=== PATIENT | male | born 1965 | race Caucasian/White ===

== ENCOUNTER 2016-06-08 23:48 | Inpatient (IN) | payer OTHER ==
[~2016-06-08] VITALS: Ht 175.3 cm; Wt 86.6 kg
[~2016-06-08 23:48] MED LIST: CHOL400D9 PO; COD1CAPS16 PO
[2016-06-09] VITALS (14 sets, daily range): BP systolic 102–174; BP diastolic 65–103; PULSE 63–104; RESP 10–21; O2SAT 94–100
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
[2016-06-09] MEDS ORDERED: Ondansetron 2 mg/mL 2 mL Inj ONE (00:14)
[2016-06-09 00:29] LABS: Mean Corpuscular Hemoglobin 32.8 pg (27.0-35.0); Mean Corpuscular Volume 86.3 fL (81-100); Platelet Count 250 bil/L (150-400)
[2016-06-09 00:40] LABS: BASOPHILS % (AUTO) 0.9 % (0-3); EOSINOPHILS % (AUTO) 1.9 % (0-5); MONOCYTES % (AUTO) 8.8 % (4-12); NEUTROPHILS % (AUTO) 36.4 % (40-74)
[2016-06-09 00:44] LABS: TROPONIN T 0.01 ug/L (0.0-0.011)
[2016-06-09] MEDS ORDERED: Alum-Mag Hydrox-Simeth 30 mL Suspension PO ONE (00:55)
[2016-06-09] MEDS ORDERED: Nitroglycerin 50 mg/250 mL D5W 50,000 MCG in IV Premix 1 EACH IV ONE (03:19)
[2016-06-09] MEDS ORDERED: Heparin 5,000 Unit/mL Inj IVPUSH ONE (03:20)
[2016-06-09] MEDS ORDERED: MeTOProlol 1 mg/mL 5 mL Inj IVPUSH PRN (03:20)
[2016-06-09] MEDS ORDERED: Heparin 25K Unit/500mL 0.45 NS 25,000 UNIT in IV Premix 1 EACH IV ONE (03:40)
[2016-06-09] MEDS ORDERED: Ondansetron 2 mg/mL 2 mL Inj IVPUSH PRN ×2 (04:00→04:30)
[2016-06-09] MEDS ORDERED: Atropine 1 mg/10 mL (Code) Syringe IVPUSH PRN (04:30)
[2016-06-09] MEDS ORDERED: Heparin 5,000 Unit/mL Inj IVPUSH PRN (04:35)
[2016-06-09] MEDS ORDERED: Heparin 25K Unit/500mL 0.45 NS 25,000 UNIT in IV Premix 1 EACH IV SCH (04:35)
[2016-06-09] MEDS: Nitroglycerin 50 mg/250 mL D5W 50,000 MCG in IV Premix 1 EACH IV SCH (04:35)
--- NOTE | 2016-06-09 05:00 | NUR ---
Pt Admission to [facility] Pt arrived to room 2000 approximately 0500 on a gurney from the ED with a Nitro drip going at 30mcg/min. Pt is AOx3, RIGGINS, and is accompanied by . Pt was hooked up to an MP30 with Q10Min vital signs. Pt's VSS and pt had 0/10 chest pain with no N/V/D. Pt is able to independently ambulate in room with a steady gait and is NPO in preparation for the engineering lab technician. Addendum: 06/09/16 at 0753 by FLORENTIN PAINTER RN Pt was given booklets pertaining to cardiac catheterization, angioplasty, and stenting.
[2016-06-09] MEDS: 0.9% Sodium Chloride 1,000 ML IV SCH ×2 (06:19→18:39)
--- NOTE | 2016-06-09 06:28 | PCM.HPMED ---
Subjective Date of Service Jun 09, 2016 Primary Provider: Admitting Physician: Khalif Matt MD Primary Care Physician: Altagracia Rucker MD Attending Physician: Khalif Matt MD Chief Complaint: Chest pain/heaviness with associated nausea and sweating History of Present Illness: PCP is Dr. Altagracia Rucker Huey is a pleasant 50-year-old gentleman with history of diabetes mellitus type II on oral medications and hyperlipidemia not currently on medication ( history of intolerance of statin) who presents with an approximately 36 hour complaint of waxing and waning chest pain/heaviness (anywhere from 1-07/24). This is associated with nausea and episodes of feeling hot and sweaty. He also notes that he has had at least 2 very brief episodes of shock sensation in the left arm. He also reports a headache during this time. Patient otherwise denies any other concerning symptoms. He does report that he had a URI back in March and April of this year. He reports receiving from his primary care provider courses of prednisone, inhalers, and cough suppressant. He currently reports that he has an ongoing dry cough but denies production. Denies fever/chills. Initially the EKG in the ER demonstrated what looked like ST elevation, but upon review with both diagnostic and interventional cardiology (with the ER physician) in the setting of repeat EKG, this was determined to not be the case. However, his second troponin was increased at 0.061, and decision was made at that time to initiate management of NSTEMI. It was noted during blood draw to check his PTT that his blood was quite "fatty." For this reason he was switched from heparin drip to therapeutic Lovenox. His chest heaviness was somewhat persistent on nitro drip, but improved. Patient is admitted under inpatient status with expected length of stay greater than 2 midnights due to severity of presenting symptoms, risk of adverse event, and complexity of treatment plan. Review of Systems: Comprehensive review of systems conducted and was negative except for the pertinent positives listed in history of present illness above. Allergies Coded Allergies: lovastatin (Verified Allergy, Intermediate, 05/19/15) Uncoded Allergies: statin drugs (Allergy, Intermediate, 06/14/10) Home Medications Med rec not yet completed: Patient reports taking the following: Metformin Fish oil Vitamin D And multiple vitamins (list was provided to the nurse in the ER, but upon searching through the chart I am not able to find a copy) We will need to address his exact doses and exactly what he is taking. PMH Diabetes mellitus type II not on insulin Patient reports fatty liver Hyperlipidemia (reports intolerance of statins-myalgias) Meniscus repair of the right knee Hemorrhoid surgery Father of leukemia at age 39 (this was reportedly secondary to agent orange exposure) Mother was quite ill with breast cancer (and possibly other cancers/metastatic disease), heart disease, stroke, diabetes Maternal grandfather had heart failure Social History Hx Alcohol Use: Yes (very rarely) Hx Substance Use: No Hx Tobacco Use: No Smoking Status: Never Smoker Living Arrangement: with Family Additional Information with children. Born in [place], and his lived in [place], [place], and now [place]. 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 However, patient is never served in the . 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 Exam Vital Signs Vital Sign - Last Date Time Temp Pulse Resp B/P Pulse Ox O2 Delivery O2 Flow Rate FiO2 06/09/16 05:52 77 06/09/16 05:06 37.5 21 118/69 95 Room Air Exam General: Good hygiene. Well-nourished. Alert, Oriented X3, Cooperative, mild to moderate Distress Head: Normocephalic, atraumatic. External ears normal. Eyes: PERRLA, EOMI. Anicteric sclerae. Conjunctivae are not injected Mouth: Mouth Normal, Mucous Membranes Moist/Tyrone Neck: Neck supple with full range of motion. No Thyromegaly. Chest & Lungs: Clear to auscultation bilaterally with no crackles, wheezes, or rhonchi. Cardiovascular: Regular Rate/Rhythm, Normal S1, Normal S2, No Murmurs/Rubs/ Gallops radial pulses are 2+ bilaterally as are the posterior tibials. No carotid bruits appreciated. Abdomen: Non-tender, Non-distended, No masses, Normoactive bowel tones, Soft Musculoskeletal: Normal Range of Motion Extremities: Mild pitting edema in the bilateral lower extremities below the knees. No cyanosis/clubbing bilat Neurological: Grossly Neurologically Intact, Cranial Nerves 2-12 Intact, Normal Speech Psych: Normal mood and affect. Thought process and content intact. Lab and Diagnostics Labs Laboratory Tests 72 Hours Test 06/08/16 23:59 06/09/16 02:20 06/09/16 04:29 White Blood Count 7.9th/mm3 (3.8-10.1) Red Blood Count 4.82mil/mm3 (4.40-5.80) Hemoglobin 15.8g/dL (13.8-17.2) Hematocrit 41.6% (41.0-50.0) Mean Corpuscular Volume 86.3fL (81-100) Mean Corpuscular Hemoglobin 32.8pg (27.0-35.0) Mean Corpuscular Hemoglobin Concent 38.0% (32.0-37.0) Red Cell Distribution Width 13.4% (12.3-15.4) Platelet Count 250bil/L (150-400) Neutrophils (%) (Auto) 36.4% (40-74) Lymphocytes (%) (Auto) 51.6% (14-46) Monocytes (%) (Auto) 8.8% (4-12) Eosinophils (%) (Auto) 1.9% (0-5) Basophils (%) (Auto) 0.9% (0-3) D-Dimer < 0.5mg/L (<0.50) Sodium Level 136mEq/L (134-144) Potassium Level 4.9mEq/L (3.5-5.2) Chloride Level 95mEq/L (97-108) Carbon Dioxide Level 22mmol/L (18-29) Blood Urea Nitrogen 17mg/dL (6-24) Creatinine 0.48mg/dL (0.76-1.27) Estimat Glomerular Filtration Rate 195mL/min (>59) Glucose Level 275mg/dL (60-99) Calcium Level 9.3mg/dL (8.5-10.1) Magnesium Level 2.0mg/dL (1.6-2.6) Total Bilirubin 0.4mg/dL (0.0-1.2) Aspartate Amino Transf (AST/SGOT) 61U/L (0-50) Alanine Aminotransferase (ALT/SGPT) 57U/L (0-44) Alkaline Phosphatase 47U/L (25-150) Troponin T 0.010ug/L (0.0-0.011) 0.061ug/L (0.0-0.011) Total Protein 8.0g/dL (6.4-8.4) Albumin 4.1g/dL (3.4-5.0) Hold Stuart Top Tube Received (Received) Triglycerides Level 2331mg/dL (0-149) Cholesterol Level 274mg/dL (100-199) LDL Cholesterol, Calculated mg/dL (0-99) VLDL Cholesterol 466.200mg/dL HDL Cholesterol 20mg/dL (>39) Cholesterol/HDL Ratio 13.70 (0.0-4.4) Hold Urine Received (Received) Result Diagram: 06/08/16 2359 06/08/16 2359 Microbiology None this visit X-Rays, CTs and MRIs Chest x-ray on personal read does not demonstrate any acute abnormality. 12-lead ECG Initial EKG when patient presented showed sinus rhythm with a rate of 60 and relatively normal intervals. There was however ST elevation in V2, V3, and borderline before. However, despite nonspecific ST-T changes in 1 and 2 these do not appear to be contributory. On repeat EKG in our to later: Sinus rhythm with rate of 68 and normal intervals , but the ST-T wave changes that were so obvious on the previous EKG had resolved. Cardiac Echo Impressions None yet this visit Assessment & Plan Huey is a pleasant 50-year-old gentleman with history of diabetes mellitus type II on oral medications and hyperlipidemia not currently on medication ( history of intolerance of statin) who presents with an approximately 36 hour complaint of waxing and waning chest pain/heaviness (anywhere from 1-5/10) with associated nausea, sweating, headache. 1. NSTEMI as indicated by normalization of ECG with elevated troponin. Acute. Present on admission -Possible alternative etiology would be pancreatitis given his significant hypertriglyceridemia (lipase is pending) -Medical management with therapeutic Lovenox and nitroglycerin drip -This is just having is somewhat persisted on nitro drip, we will get cardiology more directly involved for possible cath today (defer to their judgment) -Continue to monitor labs, vital signs, clinical progression closely -We will trend troponins -We will likely need to add additional medications to his regimen (such as beta abiel, Carlos, aspirin) -Cardiology consulted 2. Severe hypertriglyceridemia with triglycerides greater than 2000, unclear etiology and chronicity but presumed to be acute. Present on admission -This puts him at significant risk for pancreatitis and cardiac complications -Given his degree of triglyceridemia, pharmacologic therapy is indicated with a fibrate, or potentially trying with the statin again. -Given his low HDL and markedly elevated total cholesterol and VLDL, there is certainly the possibility of the inherited mixed hyperlipidemia in this gentleman. -May be related to his diabetes (given his significantly elevated blood glucose of 275), and I am checking an A1c -Added TSH and free T4 -Added UA to assess for proteinuria -Continue to monitor labs, vital signs, clinical progression closely 3. Hyperglycemia in patient with type II diabetes, not on insulin. Present on admission -Suspect poor control -A1c as above, with subsequent determination for intervention/management -In the meantime, will add medium dose correction insulin -Continue to follow closely and consider for basal insulin 4. Mild transaminitis, unknown chronicity but presumed to be acute. Present on admission -Potentially related to fatty liver, hypertriglyceridemia, or ACS -Management as above -Continue to monitor labs closely 5. Relative lymphocytosis with normal white blood cell count, unclear etiology and chronicity. Present on admission -Management of acute presenting conditions as noted above -Continue to follow closely Chronic conditions: Patient reports fatty liver-as noted above, we will add on abdominal ultrasound Patient is admitted under inpatient status with expected length of stay greater than 2 midnights due to severity of presenting symptoms, risk of adverse event, and complexity of treatment plan. Pain Evaluation: Adequate Pain Control GI Prophylaxis: Not indicated VTE Prophylaxis: Other (therapeutic Lovenox) Resuscitation Status: CPR: Attempt Resuscitation Attending Statement The patient was seen and examined together with Dr. Cordoba on 06/09 and I agree with the history, exam and plan as outlined in the note above. copies to: Altagracia Rucker MD, Collin T DO Jun 09, 2016 06:28 Khalif Matt MD Jun 09, 2016 19:14
--- NOTE | 2016-06-09 07:29 | DRSVH ---
PROCEDURE: X-RAY CHEST ONE VIEW, PORTABLE ([id number]) INDICATIONS: CP TECHNIQUE: One view of the chest was acquired. COMPARISON: [facility], CR, CHEST 1VW, 11/26/2008, 20:17. [facility], CR, CH EST 1VW (PORTABLE), 11/26/2008, 19:09. [facility], CR, CHEST 1VW, 08/18/2013, 10:55. FINDINGS: Surgical changes and devices: None. Lungs and pleura: No pleural effusions or pneumothorax. Lungs are clear. Mediastinum: Mediastinal contours appear normal. Heart size is normal. Bones and chest wall: No suspicious bony lesions. Overlying soft tissues appear unremarkable. IMPRESSION: No acute process. Dictated by: Gerry Amaya M.D. on 06/09/2016 at 7:27 Approved by: Gerry Amaya M.D. on 06/09/2016 at 7:28
[2016-06-09] MEDS: Sodium Chloride LOK Flush 10 mL Syringe IVFLUSH SCH ×2 (07:45→16:30)
[2016-06-09] MEDS: Insulin Human REGular 300 Unit/3 mL Inj SUBQ SCH ×3 (07:45→20:39)
[2016-06-09 08:14] LABS: APPEARANCE,URINE CLEAR (CLEAR,HAZY); COLOR,URINE STRAW (YELLOW); OCCULT BLOOD,URINE NEGATIVE (NEGATIVE); PH,URINE 6.5 (5.0-8.0); UROBILINOGEN,URINE NORMAL (NORMAL)
[2016-06-09 08:26] LABS: BASOPHILS % (AUTO) 0.4 % (0-3); EOSINOPHILS % (AUTO) 1.7 % (0-5); MONOCYTES % (AUTO) 6.3 % (4-12); Mean Corpuscular Hemoglobin 31.3 pg (27.0-35.0); Mean Corpuscular Volume 87.1 fL (81-100); NEUTROPHILS % (AUTO) 49.4 % (40-74); Platelet Count 189 bil/L (150-400)
[2016-06-09] MEDS ORDERED: METF500T4 PO (08:44)
--- NOTE | 2016-06-09 11:02 | NUR ---
Social Work Note: Screen Note Data& Assessment: EMR reviewed. SW met with pt and pt at bedside to check in and assess for any unmet needs, SW role explained. SW phone number provided on pt whiteboard. Huey Leonard is a 50 year old male admitted on 06/09/2016 for NONSTEMI. Pt has [facility] insurance coverage and sees Altagracia Rucker MD for primary care. Pt lives in [place] with his in a three story home and is independent at baseline. Pt was provided with DPOA/Advance Directive paperwork to review and complete when possible. Pt to transport pt home when medically ready. Pt and pt deny any other needs at this time. SW to continue to follow if any needs arise. Plan: Anticipated discharge home via POV when medically ready. Pt and pt deny any other needs at this time. SW to continue to follow if any needs arise. MIGUEL Cabrera
[2016-06-09 12:53] LABS: Creatine Kinase 134 U/L (21-232)
[2016-06-09 12:54] LABS: Creatine Kinase 142 U/L (21-232)
--- NOTE | 2016-06-09 14:54 | NUR ---
Assumed pt care Assumed pt care at approximately 1440. Pt socializing and eating lunch with . Care continues. Addendum: 06/09/16 at 1455 by CAROLINE SINGH RN Report taken from Elizabeth Jurado RN.
--- NOTE | 2016-06-09 15:12 | CONS ---
[address] [address] CONSULTATION REPORT PATIENT: JILLIAN UREÑA : 1965 MR#: [id number] ADMIT: 06/09/2016 JOB ID: [id number] DATE OF SERVICE: 06/09/2016 CHIEF COMPLAINT: Chest pain. HISTORY OF PRESENT ILLNESS: The patient is a 61-year-old man. Comes in with waxing and waning chest discomfort that has been going on for the past 36 hours. It is associated with diaphoresis. He has multiple coronary artery disease risk factors including diabetes, uncontrolled hyperlipidemia, and family history of cardiovascular disease in his mom. There are multiple EKGs from the emergency department. Some of them document early repolarization pattern, ST elevation without reciprocal ST changes and some of them document somewhat concerning ST elevations in leads II and III, but again without reciprocal ST depressions. He says that for a long time, he has known that he has uncontrolled hyperlipidemia. He has attempted to take a statin, but unfortunately with significant myalgias. He was previously on niacin but discontinued this medication. 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 he does not smoke FH: CAD in father REVIEW OF SYSTEMS: No headache, no hematuria, no bright red blood per rectum. Chest pain as outlined in history of present illness. Otherwise, 10-point review of systems is negative. ALLERGIES: UNKNOWN STATIN, which caused myalgias. HOME MEDICATIONS: CURRENT MEDICATIONS: 1. Aspirin 81 mg daily. 2. Lipitor 80 mg daily. 3. Niaspan 1000 mg twice a day. 4. Nitroglycerin drip 25 mcg/minute. 5. Lovenox 80 units subcu twice a day. 6. Sliding scale insulin regular. PHYSICAL EXAMINATION: Overweight man, no apparent distress, lying flat. Eyes: No scleral icterus. Neck supple. No carotid bruits. Heart: Normal S1, S2. No murmurs, rubs, or gallops. PMI is nondisplaced. Lungs are clear anteriorly. The abdomen is soft with positive bowel sounds. No hepatosplenomegaly. No periumbilical bruit. Legs show no lower extremity edema. There are no skin rashes or lesions. Vascular exam shows intact right common femoral artery pulsation with no evidence of bruit. LABORATORIES: Reviewed. Troponin T was elevated 0.06 on admission, now 0.1. EKG with early refill pattern that is unchanged from prior at this moment in time. Telemetry with no events. No evidence of VT. Echocardiogram: I personally reviewed. It shows distal septal akinesis, mid inferoseptal hypokinesis, and apical hypokinesis. EF is preserved. ASSESSMENT AND PLAN: In summary, this is a 49-year-old man with elx-DA-aovkimiud myocardial infarction. On nitro, he is pain free. I recommend medical therapy (with asa , statin, heparin drip and nitro drip) and undergo cardiac catheterization with intervention tomorrow. Thank you very much for the opportunity to participate in his care. KAREN
--- NOTE | 2016-06-09 16:25 | NUR ---
Chest heaviness Pt stated he is having chest heaviness, same thing he experienced the night before coming into ER. Administered 3 L NC, repositioned pt at 45 degree angle. Notified MD. Addendum: 06/09/16 at 1655 by CAROLINE SINGH RN STAT EKG ordered, RT in room. Per MD increase Nitro to 50 mcg/min up from 20 mcg/min at approximately 1655.
--- NOTE | 2016-06-09 19:20 | DRSVH ---
[facility] [address] [place] [address] Echocardiogram Report Name: JILLIAN UREÑA Elliot e: 06/09/2016 Height: 69 in Hospital Exam Location: [facility] Weight: 18 9 lb Gender: Male BSA: 2.0 m2 : 1965 Age: 50 yrs BP: 110/71 mmHg Reason For Study: Chest pain Performed By: Chayo Paulino Referring Physician: JORGE L MENESES Interpretation Summary Normal sinus rhythm. Normal LV size and wall thickness. There is distal septal , mid-anterior, distal anterior and mid-anteroseptal hypokinesis. EF is 55-60%. Stage I diastolic dysfunction. Aortic valve leaflets are moderately thickened and calcified, especially along the non-coronary leaflet. There is mild associated AI. Otherwise no significant valvular abnormalities. No prior study available for comparison. Procedure: A two-dimensional transthoracic echocardiogram with color flow and Doppler was performed. The study quality was technically good. There is no prior echocardiogram noted for this patient. The patient was in normal sinus rhythm during the exam. Left Ventricle: The left ventricle is normal in size. There is normal left ventricular wall thickness. The ejection fraction is estimated to be 55-60%. There is distal septal , mid-anterior, distal anterior and mid-anteroseptal hypokinesis. Right Ventricle: The right ventricle is normal in size and function. Atria: The left atrial size is normal. Right atrial size is normal. The interatrial septum is intact with no evidence for an atrial septal defect. Mitral Valve: The mitral valve is normal. There is no mitral regurgitation noted. Aortic Valve: The aortic valve is trileaflet. Leaflet mobility is mildly reduced. The aortic valve is moderately calcified. There is mild aortic regurgitation. Tricuspid Valve: The tricuspid valve is normal in structure and function. There is trace tricuspid regurgitation. The right ventricular systolic pressure is estimated at 25 mmHg assuming a right atrial pressure of 3 mm Hg. Pulmonic Valve: The pulmonic valve is normal in structure and function. There is no pulmonic valvular regurgitation. Great Vessels: The aortic root is normal size. The ascending aorta is at the upper limits of normal in size. The IVC is of normal diameter and collapses greater than 50% with a sniff. This suggests a low right atrial pressure of 3 mm Hg. Pericardium/ Pleura There is no pericardial effusion. There is no pleural effusion. MMode/2D Measurements & Calculations LVIDd LA dimension: 3.5 cm RA long axis: 4.4 cm Ao root diam : 3.9 cm LVIDs LA A2 area: 18.2 cm RA area: 12.8 cm Aortic Jxn: 3.1 cm : 2.1 cm LA A4 area: 14.1 cm RA vol: 31.9 ml asc Aorta Diam FS: 45.5 % LA length (vol): 4.2 cmRA : 15.8 ml/m2 IVSd: 1.1 cmLA vol: 51.6 ml Ao Arch Diam (Prox LVPWd LA vol index Trans): 3.2 cm : 0.9cm IVC diam: 1.3 cm CLAUDIA (plan) LV spaulding. diameter/BSA LV sys. diameter/BSA : 3.5 cm2 (cm/m^2): 1.9 (cm/m^2): 1.1 Doppler Measurements & Calculations Ao V2 max MV E max yossi MV E/A: 0.81 TR max yossi : 167.0 cm/sec : 62.7 cm/sec Med Peak E' Yossi : 236.6 cm/sec Ao max P.2 mmHg MV A max yossi TR max PG Ao mean P.5 mmHg : 77.5 cm/sec E/E' med: 10.5 : 22.4 mmHg MV P1/2t Lat Peak E' Yossi PA V2 max : 71.4 msec : 90.3 cm/sec E/E' lat: 7.8 PA mean PG E/e' average: 9.1 Pulm A Revs Dur PA Accel Time : 0.15 sec MV A dur: 0.15 sec MV dec time: 0.24 sec MV P1/2t max yossi Ao V2 mean PA V2 mean : 121.5 cm/sec : 57.4 cm/sec MVA(P1/2t) Ao V2 VTI: 34.9 cm : 3.1 cm2 Pulm A Revs Dur - MV A Dur: -0.06 msec Reading Physician:07:19 PM
[2016-06-10] VITALS (17 sets, daily range): BP systolic 102–145; BP diastolic 60–89; PULSE 70–112; RESP 13–24; O2SAT 93–98
[2016-06-10] MEDS: Sodium Chloride LOK Flush 10 mL Syringe IVFLUSH SCH ×7 (00:30→22:10)
[2016-06-10] MEDS: Insulin Human REGular 300 Unit/3 mL Inj SUBQ SCH ×4 (01:49→22:10)
[2016-06-10] MEDS: Nitroglycerin 50 mg/250 mL D5W 50,000 MCG in IV Premix 1 EACH IV SCH ×2 (01:50→22:10)
[2016-06-10 03:41] LABS: BASOPHILS % (AUTO) 0.3 % (0-3); Mean Corpuscular Hemoglobin 31.6 pg (27.0-35.0); Mean Corpuscular Volume 89.6 fL (81-100); NEUTROPHILS % (AUTO) 58.3 % (40-74); Platelet Count 188 bil/L (150-400)
[2016-06-10 05:04] LABS: Magnesium 1.7 mg/dL (1.6-2.6); Phosphorus 2.9 mg/dL (2.5-4.9)
[2016-06-10 05:07] LABS: TROPONIN T 0.133 ug/L (0.0-0.011)
[2016-06-10] MEDS: 0.9% Sodium Chloride 1,000 ML IV SCH (06:22)
[2016-06-10] MEDS ORDERED: 0.9% Sodium Chloride 1,000 ML IV ONE (07:15)
--- NOTE | 2016-06-10 07:35 | NUR ---
[facility]/Prep for Parts Puller/VSS Pt has c/o [facility] r/t nitro drip with only minimal relief from 325mg of Tylenol Q6H. Pt was cleaned head-to-toe with chlorhexidine wipes in preparation for the label coder this AM. Pt has been NPO since midnight. Pt still needs to sign the procedural consent form. Pt's VS have remained stable. Pt does get ST to 130s with activity but goes back to SR 90s-100s when back at rest.
[2016-06-10] MEDS ORDERED: 0.9% Sodium Chloride 2,000 ML ONE (11:14)
[2016-06-10] MEDS ORDERED: Heparin 1,000 Unit/mL 10 mL Inj ONE ×2 (11:14→12:09)
[2016-06-10] MEDS ORDERED: Heparin 1,000 Units/500 mL NS Premix IV ONE (11:14)
[2016-06-10] MEDS ORDERED: fentaNYL-PF 50 mCg/mL 2 mL Inj ONE (11:36)
[2016-06-10] MEDS ORDERED: Nitroglycerin 50,000 mcg/250 mL D5W Premix IV ONE (12:05)
[2016-06-10] MEDS ORDERED: Phenylephrine/NS-PF 100 mCg/mL 5 mL Syringe IVPUSH ONE (12:06)
[2016-06-10] MEDS ORDERED: Atropine 1 mg/10 mL (Code) Syringe ONE (12:06)
--- NOTE | 2016-06-10 13:39 | DRSVH ---
PROCEDURE: US ABDOMEN ([id number]) INDICATIONS: Report of fatty liver, transaminitis TECHNIQUE: Real-time scanning was performed of the abdominal and retroperitoneal organs, with image documentatio n. COMPARISON: None. FINDINGS: Liver: Liver is diffusely increased in echogenicity. No focal hepatic abnormalities identified. No rmal hepatic size. Gallbladder: Normal gallbladder. Biliary ducts: Intrahepatic bile ducts are non-dilated. Extrahepatic bile duct caliber measures 3.5 mm. Normal is 6-7 mm or less in diameter, or 10 mm or less post-cholecystectomy. Pancreas: Visualized portions of the pancreas are sonographically normal. Spleen: Spleen is normal in size and homogeneous in echotexture. Kidneys: Kidneys are normal in size and echotexture. Right kidney measures 12.2 cm long; left kidne y measures 11.0 cm long. No hydronephrosis or nephrolithiasis. No solid masses. Aorta: Visualized aorta is normal in caliber at less than 3 cm. Iliacs: Proximal common iliac arteries are normal in caliber at less than 2.5 cm. IVC: Intrahepatic inferior vena cava is patent. Miscellaneous: No free abdominal fluid. IMPRESSION: 1. Increased hepatic echogenicity noted likely related to fatty infiltration of the liver but other s ources of hepatocellular disease cannot be excluded. Recommend clinical correlation. Dictated by: Shane KEENE Interpreted: Ashley Snyder MD on 06/10/2016 at 13:38 Transcribed by: NATTY on 06/10/2016 at 13:38 Approved by: Ashley Snyder M.D. on 06/11/2016 at 10:34
[2016-06-10] MEDS ORDERED: 0.9% Sodium Chloride 1,000 ML IV PRN (13:51)
[2016-06-10] MEDS ORDERED: 0.9% Sodium Chloride 250 ML IV PRN (13:51)
[2016-06-10] MEDS ORDERED: Ondansetron 2 mg/mL 2 mL Inj IVPUSH PRN (13:55)
--- NOTE | 2016-06-10 15:18 | NUR ---
transfer to room 2000 Pt had stabel dajuan arvizu in MYRTLE post heart cath with stent to LAD x2. VSS and WNL on RA, groin site soft non tender. Report called to Dario Simmons RN, family made aware of transfer.
--- NOTE | 2016-06-10 15:47 | DI95 ---
[address] [address] INTERVENTIONAL CARDIAC CATHETERIZATION PATIENT: JILLIAN UREÑA : 1965 MR#: [id number] ADMIT: 06/09/2016 JOB ID: [id number] DATE OF PROCEDURE: 06/10/2016 PATIENT PROFILE: The patient is a 50-year-old male with history of diabetes and uncontrolled dyslipidemia. He presented with quj-MY-iacboggr myocardial infarction. PROCEDURE: 1. Retrograde left heart catheterization. 2. Selective coronary angiography. 3. Balloon angioplasty and stenting to the mid left anterior descending. 4. Left ventricular angiogram. 5. Vascular closure device: Perclose. COMPLICATIONS: None. METHOD: Retrograde left heart catheterization was performed from the right groin under 1 % lidocaine local anesthesia using a 6-Nepali sheath. Selective coronary angiogram was performed in multiple projections, including cranial and caudal angulations with hand injected contrast via JL4 and 3DRC catheters. Heparin 100 units/kg and prasugrel 60 mg were given. A 6-Nepali JL4 guide was advanced to the left coronary ostium. A Runthrough wire was placed inside the left anterior descending artery. The mid left anterior descending artery lesion was pre-dilated with a 2.5 x 20 mm balloon. An attempt to advance a Resolute Integrity 2.5 x 22 mm stent was unsuccessful. A Guideliner was then used. The Resolute Integrity was then placed in the mid left anterior descending artery lesion and deployed at 15 atmospheres for 20 seconds. The angiogram at this point demonstrated distal edge dissection. A Xience 2.25 x 15 mm stent was placed distal to the first stent and deployed at 15 atmospheres for 20 seconds. This stent balloon was then pulled back and dilated at 20 atmospheres. Nitroglycerin 200 mcg was given intracoronary. Final angiogram was obtained. A 5-Nepali angulated pigtail catheter was advanced to the left ventricle and left ventricular angiogram was performed in the 30 degree GOLDSMITH view by injecting contrast at a rate of 15 cc/second for 1 second. This catheter was withdrawn. Right femoral angiogram was performed. Upon sheath removal, hemostasis was achieved by using a Perclose device. The patient tolerated the procedure well. He was transferred to [facility] in good condition. TOTAL CONTRAST USED: 145 cc. FLUORO TIME: 9.4 minutes. RESULTS: 1. Selective coronary angiogram: a. Left main coronary artery is normal. b. The left anterior descending artery is transapical and has 50% stenosis in the proximal portion and 40% stenosis in the proximal mid portion and a long 98% stenosis in the distal mid portion. The first and second diagonal branches are small and have minor irregularity. The third diagonal branch is moderate size and has 50% stenosis. c. The circumflex artery has 95% stenosis in the mid portion. d. The dominant right coronary artery has minor 20% stenosis. 2. Balloon angioplasty and stenting was performed to the critical mid left anterior descending artery lesion by deploying two drug-eluting stents, 2.5 x 22 mm and 2.25 x 15 mm) to achieve an excellent angiographic result with SYDNEE-3 flow distally. 3. Left ventricular angiogram demonstrated mild to moderately depressed left ventricular systolic function (visually estimated ejection fraction 40% to 45%). The anterolateral wall is severely hypokinetic. 4. There is no gradient across the aortic valve on catheter withdrawal. 5. Aortic pressure is 137/79 mmHg. Left ventricular pressure is 130/0 mmHg. 6. Left ventricular end-diastolic pressure is 17 mmHg. CONCLUSION: 1. Severe two-vessel coronary artery disease of the left anterior descending and circumflex artery. 2. Successful balloon angioplasty and stenting to the critical 98% stenosis of the mid left anterior descending artery by deploying two drug-eluting stents. 3. LVEF 40-45%. 4. LVEDP is 17 mmHg. PLAN: Percutaneous coronary intervention will be performed to the circumflex artery lesion tomorrow. [facility]
--- NOTE | 2016-06-10 19:17 | NUR ---
Temp/pain Pt back to [facility] at 15:30, pt has temp of 38.8 and 39 this afternoon. vitals stable, R groin site non-tender and soft to palpation, bilateral pedal pulses equal and strong. CMS intact. Pt does report pain in his quads, but no other symptoms. Cardiac: pt denies chest pain. Nitro drip continues at 50mcg/min rate this AM, DC'd for heart cath. Tele: SR 80s-90s tachy with activity. Resp: pt denies SOB. pt SpO2 94% on RA. GI/: pt denies N/V/D. Neuro: AOx3, RIGGINS
--- NOTE | 2016-06-10 20:27 | PCM.PNMED ---
Subjective Date of Service Jun 10, 2016 Subjective Patient states he is feeling fine, no new complaints, no chest pain, no shortness of breath, no lightheadedness, dizziness palpitations. Exam Vital Signs Vital Sign - Last Date Time Temp Pulse Resp B/P Pulse Ox O2 Delivery O2 Flow Rate FiO2 06/10/16 17:34 39.0 06/10/16 17:06 94 06/10/16 15:40 15 140/82 98 Room Air 06/10/16 07:39 0.50 Intake and Output 06/09/16 06/09/16 06/10/16 Cumulative From/Thru 15:00 23:00 07:00 06/09/16 00:00 - 06/10/16 06:44 Intake Total 800 ml 400 ml 1200 ml Output Total 480 ml 1975 ml 2455 ml Balance 320 ml -1575 ml -1255 ml Intake Oral 800 ml 400 ml 1200 ml Output Urine Total 480 ml 1975 ml 2455 ml # Voids 4 4 Exam General: Laying in bed, no apparent distress. HEENT: Normocephalic, atraumatic, EOMI grossly, Cardiovascular: Regular rate and rhythm, no clicks murmurs rubs, peripheral pulses 2/4 equal bilaterally Pulmonary: Clear to auscultation bilaterally, no W/R/R. Abdominal: Soft to palpation, bowel sounds present 4, no hepatosplenomegaly. Negative rebound. Extremities: No edema appreciated. No tenderness, asymmetry. Neuro: Neurologically grossly intact, strength is equal bilaterally upper and lower extremities. MSK: Able to move extremities on their own volition, strength 5 out of 5 equal bilaterally to upper and lower extremities. Lab and Diagnostics Result Diagram: 06/10/16 0244 06/10/16 0244 Microbiology None this visit X-Rays, CTs and MRIs Chest x-ray on personal read does not demonstrate any acute abnormality. Abdominal ultrasound performed 06/10/2016 IMPRESSION: 1. Increased hepatic echogenicity noted likely related to fatty infiltration of the liver but other sources of hepatocellular disease cannot be excluded. Recommend clinical correlation. Dictated by: Shane KEENE Interpreted: Ashley Snyder MD on 06/10/2016 at 13: 38 12-lead ECG Initial EKG when patient presented showed sinus rhythm with a rate of 60 and relatively normal intervals. There was however ST elevation in V2, V3, and borderline before. However, despite nonspecific ST-T changes in 1 and 2 these do not appear to be contributory. On repeat EKG in our to later: Sinus rhythm with rate of 68 and normal intervals , but the ST-T wave changes that were so obvious on the previous EKG had resolved. Cardiac Echo Impressions None yet this visit Additional Diagnostics Interventional cardiac catheterization: Retrograde left heart catheterization performed 06/10/2016 CONCLUSION: 1. Severe two-vessel coronary artery disease of the left anterior descending and circumflex artery. 2. Successful balloon angioplasty and stenting to the critical 98% stenosis of the mid left anterior descending artery by deploying two drug-eluting stents. 3. LVEF 40%. 4. LVEDP is 17 mmHg. Tee Smith MD 06/10/16 1979 Assessment & Plan Huey is a pleasant 50-year-old gentleman with history of diabetes mellitus type II on oral medications and hyperlipidemia not currently on medication ( history of intolerance of statin) who presents with an approximately 36 hour complaint of waxing and waning chest pain/heaviness (anywhere from 1-5/10) with associated nausea, sweating, headache. 1. NSTEMI as indicated by normalization of ECG with elevated troponin. Acute. Present on admission - Underwent cardiac catheterization 06/10/2016: Two-vessel coronary artery disease left anterior descending and circumflex artery. Underwent successful balloon angioplasty and stenting of the critical 98% stenosis of the mid LAD and appointment of 2 drug-eluting stents. - Anticoagulation change from enoxaparin to clopidogrel - Nitroglycerin drip stopped. Heparin drip stopped -Troponin trending down. -Cardiology consulted: We thank them for their time, and recommendations. -Aspirin 81 mg daily, Nitroglycerin as needed sublingual, Clopidogrel 75 mg daily -Continue to monitor labs, vital signs, clinical progression closely -Patient received statin, and had recurrence of myalgia. Statin stopped. 2. Severe hypertriglyceridemia with triglycerides greater than 2000, unclear etiology and chronicity but presumed to be acute. Present on admission -This puts him at significant risk for pancreatitis and cardiac complications - lipase negative -Given his degree of triglyceridemia, pharmacologic therapy is indicated with a fibrate, currently on 1 g of niacin daily -Given his low HDL and markedly elevated total cholesterol and VLDL, there is certainly the possibility of the inherited mixed hyperlipidemia in this gentleman. -May be related to his diabetes (given his significantly elevated blood glucose of 275), and I am checking an A1c, (Pending) -Added TSH and free T4, pending. - UA negative for proteinuria. -Continue to monitor labs, vital signs, clinical progression closely 3. Hyperglycemia in patient with type II diabetes, not on insulin. Present on admission -Suspect poor control -A1c as above, with subsequent determination for intervention/management -In the meantime, will add medium dose correction insulin -Low carb diet. -Continue to follow closely and consider for basal insulin 4. Mild transaminitis, unknown chronicity but presumed to be acute. Present on admission -Potentially related to fatty liver, hypertriglyceridemia, or ACS -Fatty infiltration of liver demonstrated on Abd US. -Management as above -Continue to monitor labs closely 5. Relative lymphocytosis with normal white blood cell count, unclear etiology and chronicity. Present on admission, Resolved. -Management of acute presenting conditions as noted above -Continue to follow closely Disposition: Patient looks likely to stay 1-2 nights, cardiology would like to do another catheterization and intervention in the morning, would assume they would want to monitor him for 24 hours following intervention. Most likely discharged home with primary care and cardiology follow-up. Pain Evaluation: Adequate Pain Control GI Prophylaxis: Not indicated VTE Prophylaxis: Sub-Q Enoxaparin Resuscitation Status: CPR: Attempt Resuscitation Attending Statement The patient was seen and examined together with Dr. Garzon on 06/10/2016 and I agree with the history, exam and plan as outlined in the note above. . Jarrett Garzon DO Jun 10, 2016 20:27 Umair Matthews MD Jun 14, 2016 08:44
[2016-06-11] VITALS (26 sets, daily range): BP systolic 113–147; BP diastolic 67–91; PULSE 67–86; RESP 12–21; O2SAT 93–98
--- NOTE | 2016-06-11 00:12 | PROG NOTE ---
[address] [address] PROGRESS NOTE PATIENT: JILLIAN UREÑA : 1965 MR#: [id number] ADMIT: 06/09/2016 JOB ID: [id number] DATE: 06/10/2016 SUBJECTIVE: Overnight, patient had no chest pain recurrence. This morning, he underwent cardiac catheterization which was pleasantly uneventful. He tolerated the procedure well. He, unfortunately, was found to have severe mid LAD lesion and circumflex lesions. He had balloon angioplasty and stenting to the mid LAD lesion, but the circumflex was left for later date. Unfortunately, it looks like he later developed fever this evening. I can see that his vital signs show T-max of 39.1 degrees. I did not get a chance to talk to him after he spiked the temperature. Appreciate the hospitalist physicians taking care of him. OBJECTIVE: Vital signs reviewed. Temperature maximum 39.1. Blood pressure 102/60, up to 145/78. Pulse 70, up to 112 beats per minute. He is satting 93% to 98% on 0.5 up to 1 L nasal cannula. Well-nourished man in no apparent distress. Eyes: No scleral icterus. Heart: Normal S1, S2. No murmurs. Lungs are clear. Anterior abdomen is soft, positive bowel sounds. No hepatosplenomegaly. MEDICATIONS: 1. Niacin 1 g daily. 2. Nitroglycerin drip was ordered, and I think we can try to wean it off. 3. Aspirin 81 mg daily. 4. Plavix 75 mg daily. 5. He is not currently on beta-abiel or statin. ASSESSMENT AND PLAN: A 50-year-old man with kgk-IH-ufwfhpjsr myocardial infarction, unfortunately, new fevers in the hospital, etiology is unknown. Appreciate hospitalist physician input. I agree with ordering blood cultures and urinalysis. Hyperlipidemia: Given heart attack and very high triglycerides of 2331, I think he needs both statin and niacin. This medication has been ordered. I understand that he has mild transaminases, AST 34, ALT 45, I still think the benefit is greater than the risk. Given cardiomyopathy, start Toprol-XL 25 mg daily. Will see how he does. We can have a low threshold to add BRENT inhibitor once we can document that he is doing well on beta-abiel. Thank you very much for the opportunity to evaluate him.
[2016-06-11 01:08] LABS: APPEARANCE,URINE CLEAR (CLEAR,HAZY); COLOR,URINE YELLOW (YELLOW); OCCULT BLOOD,URINE NEGATIVE (NEGATIVE); UROBILINOGEN,URINE NORMAL (NORMAL)
[2016-06-11] MEDS: Insulin Human REGular 300 Unit/3 mL Inj SUBQ SCH ×5 (02:06→19:47)
[2016-06-11 03:21] LABS: BASOPHILS % (AUTO) 0.4 % (0-3); EOSINOPHILS % (AUTO) 0.4 % (0-5); MONOCYTES % (AUTO) 10.6 % (4-12); Mean Corpuscular Hemoglobin 30.8 pg (27.0-35.0); Mean Corpuscular Volume 89.2 fL (81-100); NEUTROPHILS % (AUTO) 62.2 % (40-74); Platelet Count 169 bil/L (150-400)
[2016-06-11] MEDS ORDERED: 0.9% Sodium Chloride 1,000 ML IV ONE ×2 (06:00→13:15)
--- NOTE | 2016-06-11 06:06 | NUR ---
Fever / Myalgia Pt febrile with temperatures 39.1C this HS; 975mg of Tylenol administered, ice chips given, cool washcloths applied, and fan turned on for pt comfort. Resident, Dr. Vogt, and Dr. Soni notified; orders written for temporarily putting 06/11 cath procedure on hold until AM consult with Dr. Andrews. Pt's temperatures reduced throughout shift, afebrile from approx. 0200 on. Pt c/o significant leg cramping bilaterally throughout shift; reports "it feels like constant josie horses to both of my calves". Per pt report, myalgia inhibits mobility, and pt states "I can barely stand up to pee. It feels like how your legs get after you do too many squats, and you can't do any more." notified, prescribed Lipitor discontinued r/t statin allergy with severe myalgia. Dr. Soni also aware.
[2016-06-11] MEDS: Sodium Chloride LOK Flush 10 mL Syringe IVFLUSH SCH ×4 (08:29→16:30)
[2016-06-11] MEDS: MeTOProlol XL 25 mg ER24 Tablet PO SCH (08:47)
[2016-06-11] MEDS ORDERED: 0.9% Sodium Chloride 2,000 ML ONE (09:01)
[2016-06-11] MEDS ORDERED: Nitroglycerin 50,000 mcg/250 mL D5W Premix IV ONE (09:01)
[2016-06-11] MEDS ORDERED: Heparin 1,000 Units/500 mL NS Premix IV ONE (09:01)
[2016-06-11] MEDS ORDERED: Heparin 1,000 Unit/mL 10 mL Inj ONE (09:01)
--- NOTE | 2016-06-11 10:36 | DI95 ---
[place] [address] INTERVENTIONAL CARDIAC CATHETERIZATION PATIENT: JILLIAN UREÑA : 1965 MR#: [id number] ADMIT: 06/09/2016 JOB ID: [id number] DATE OF PROCEDURE: 06/11/2016 PATIENT PROFILE: The patient is a 50-year-old male with history of diabetes and uncontrolled dyslipidemia. He presented with acute coronary syndrome. PROCEDURE: Balloon angioplasty and stenting to the tight mid circumflex artery. VASCULAR CLOSURE DEVICE: StarClose. COMPLICATION: None. METHOD: Vascular access was obtained from the right groin under 1% lidocaine local anesthesia using a 6-Bhutanese sheath. Heparin 9,000 units were given. A 6-Bhutanese CLS 4 guide was advanced to the left coronary ostium. A Runthrough wire was placed inside the circumflex artery. The mid circumflex artery lesion was pre-dilated with a 3.0 x 12 mm balloon. A Resolute Integrity 3.5 x 12 mm stent was placed inside the mid circumflex artery lesion and deployed at 10 atmospheres for 20 seconds. Final angiogram was obtained. Right femoral angiogram was performed. Following sheath removal, hemostasis was achieved by using a StarClose device. The patient tolerated the procedure well. He was transferred to the [facility] in good condition. TOTAL CONTRAST USED: 40 cc. FLUOROSCOPY TIME: 2.1 minutes. TOTAL RADIATION DOSE: 61 milligray. RESULTS: Successful balloon angioplasty and stenting to the tight 90% mid circumflex artery stenosis by deploying one drug eluting stent (3.5 x 12 mm) to achieve an excellent angiographic result with SYDNEE-3 flow distally. MTDD
--- NOTE | 2016-06-11 11:01 | NUR ---
Received Received from dental laboratory technician apprentice about 1025. VSS. Right groin with scant ooze noted at 1100. No hematoma. Denied pain initially. Now c/o mild epigastric abdominal cramping and intermittent [place]. Refusing meds at this time. Taking po fluids well. States will wait for food until lunch. Family at bedside. Continue to monitor per orders
--- NOTE | 2016-06-11 11:04 | NUR ---
Social Work: Readiness for d/c Data: Pt is on day 2 of hospitalization. EMR reviewed. Pt discussed in rounds, MD states pt likely ready for d/c in 1-2 days and that pt will go to labor contract analyst today. No d/c planning needs identified at this time. ENVIRONMENTAL LABORATORY TECHNICIAN will continue to follow if needs arise. Assessment: Pt who is independent at baseline. Plan: Pt will d/c home via POV when medically stable, likely in 1-2 days per MD. No d/c planning needs identified at this time. ENVIRONMENTAL LABORATORY TECHNICIAN will continue to follow if needs arise. MIGUEL Woods
[2016-06-11] MEDS ORDERED: Lidocaine 1%-Epi 1:100,000 20 mL Inj ONE (13:09)
[2016-06-11] MEDS ORDERED: fentaNYL-PF 50 mCg/mL 2 mL Inj ONE (13:25)
--- NOTE | 2016-06-11 13:47 | NUR ---
Hematoma Pt. continued to ooze. Requested injection of Lido and Epi. No hematoma to that point and VS stable. When tech came to inject, discovered half dollar size hematoma. Tech held pressure and hematoma reduced. Recovery restarted. Versed 1mg and Fentanyl 50mcg IV given per MD order. Pt. states minimal to moderate aching continues. Tylenol was given around 1130. IVF continues per orders. Continue to monitor per order.
--- NOTE | 2016-06-11 16:07 | NUR ---
Transfer Right groin continues without bleeding or hematoma. Quite tender. VSS. Tele SR. Report to Dario Light RN. Transported to 2000 via bed at 1545 in no acute distress.
--- NOTE | 2016-06-11 19:18 | NUR ---
Cath/pain/A1C Cardiac: Pt denies CP, Tele: SR 80s. Pt off floor at 09:30 for heart cath, back at 16:00. Groin site is tender following hematoma in MYRTLE and direct pressure hold, no new signs of bleeding, CMS intact and strong bilateral pedal pulses. Resp: Pt denies SOB, SPO2 95% on RA. GI/: pt denies N/V/D. Discussed A1C results with pt to assess knowledge, pt admits he has not been as compliant with his diet as when he was first diagnosed. Pt lost a lot of weight when first diagnosed and seems motivated. Dr Garzon aware. Neuro: Pt reports pain that presents like pain from bruising to both of his quadriceps R>L. Pt report that pain is getting better, it is only present with movement, also reports his legs feel "shaky". aware. All symptoms improving this afternoon following heart cath, pt is having minor muscle spasms.
--- NOTE | 2016-06-11 19:19 | PCM.PNMED ---
Subjective Date of Service Jun 11, 2016 Subjective Patient spent most of his stay in the cardiac catheterization suite. Patient reports that he developed a hematoma in his right inguinal catheterization site that required additional time prior to being able to undergo catheterization by Dr. Andrews. He denies any increase pain, no lightheadedness, dizziness, chest pain , shortness of breath. He does bring up that occasionally he has "muscle and skin twitching" in his subxiphoid area. He denies this being associated with any other symptoms such as lightheadedness, dizziness, anxiety, relation to when he eats, or chest pain. Exam Vital Signs Vital Sign - Last Date Time Temp Pulse Resp B/P Pulse Ox O2 Delivery O2 Flow Rate FiO2 06/11/16 17:16 Supplement Oxygen 06/11/16 16:03 37.2 78 19 133/89 98 06/10/16 07:39 0.50 Intake and Output 06/10/16 06/10/16 06/11/16 Cumulative From/Thru 14:59 22:59 06:59 06/09/16 00:00 - 06/11/16 05:51 Intake Total 2152 ml 1137 ml 900 ml 5389 ml Output Total 1600 ml 450 ml 4505 ml Balance 2152 ml -463 ml 450 ml 884 ml Intake Oral 740 ml 1940 ml IV Total 2152 ml 397 ml 900 ml 3449 ml Output Urine Total 1600 ml 450 ml 4505 ml # Voids 2 6 Exam General: Laying in bed, no apparent distress. HEENT: Normocephalic, atraumatic, EOMI grossly, Cardiovascular: Regular rate and rhythm, no clicks murmurs rubs, peripheral pulses 2/4 equal bilaterally Pulmonary: Clear to auscultation bilaterally, no W/R/R. Abdominal: Soft to palpation, bowel sounds present 4, no hepatosplenomegaly. Negative rebound. No fasciculations appreciated no tenderness in epigastrium Extremities: No edema appreciated. No tenderness, asymmetry. Neuro: Neurologically grossly intact, strength is equal bilaterally upper and lower extremities. MSK: Able to move extremities on his own volition, strength 5 out of 5 equal bilaterally to upper and lower extremities. IVs and Medications Medications Reviewed: Medications were reviewed in detail Lab and Diagnostics Result Diagram: 06/11/16 02206/11/16 0220 Microbiology None this visit X-Rays, CTs and MRIs Chest x-ray on personal read does not demonstrate any acute abnormality. Abdominal ultrasound performed 06/10/2016 IMPRESSION: 1. Increased hepatic echogenicity noted likely related to fatty infiltration of the liver but other sources of hepatocellular disease cannot be excluded. Recommend clinical correlation. Dictated by: Shane Yepez RRPavan Interpreted: Ashley Snyder MD on 06/10/2016 at 13: 38 12-lead ECG Initial EKG when patient presented showed sinus rhythm with a rate of 60 and relatively normal intervals. There was however ST elevation in V2, V3, and borderline before. However, despite nonspecific ST-T changes in 1 and 2 these do not appear to be contributory. On repeat EKG in our to later: Sinus rhythm with rate of 68 and normal intervals , but the ST-T wave changes that were so obvious on the previous EKG had resolved. Cardiac Echo Impressions None yet this visit Additional Diagnostics Interventional cardiac catheterization: Retrograde left heart catheterization performed 06/10/2016 CONCLUSION: 1. Severe two-vessel coronary artery disease of the left anterior descending and circumflex artery. 2. Successful balloon angioplasty and stenting to the critical 98% stenosis of the mid left anterior descending artery by deploying two drug-eluting stents. 3. LVEF 40%. 4. LVEDP is 17 mmHg. Tee Smith MD 06/10/16 1239 Assessment & Plan Huey is a pleasant 50-year-old gentleman with history of diabetes mellitus type II on oral medications and hyperlipidemia not currently on medication ( history of intolerance of statin) who presents with an approximately 36 hour complaint of waxing and waning chest pain/heaviness (anywhere from 1-5/10) with associated nausea, sweating, headache. 1. NSTEMI as indicated by normalization of ECG with elevated troponin. Acute. Present on admission - Underwent cardiac catheterization 06/10/2016: Two-vessel coronary artery disease left anterior descending and circumflex artery. Underwent successful balloon angioplasty and stenting of the critical 98% stenosis of the mid LAD and appointment of 2 drug-eluting stents. Cardiac catheterization 06/11/2016 balloon angioplasty of right circumflex, deployment of 1 drug eluting stent - Anticoagulation change from enoxaparin to clopidogrel, continue clopidogrel - Nitroglycerin drip stopped. Heparin drip stopped -Troponin trending down. -Cardiology consulted: We thank them for their time, and recommendations. -Aspirin 81 mg daily, Nitroglycerin as needed sublingual, Clopidogrel 75 mg daily, Metoprolol XL 25 daily. -Continue to monitor labs, vital signs, clinical progression closely -Patient received statin, and had recurrence of myalgia. Statin stopped. 2. Severe hypertriglyceridemia with triglycerides greater than 2000, unclear etiology and chronicity but presumed to be acute. Present on admission -This puts him at significant risk for pancreatitis and cardiac complications - lipase negative -Given his degree of triglyceridemia, pharmacologic therapy is indicated with a fibrate, currently on 1 g of niacin daily -Given his low HDL and markedly elevated total cholesterol and VLDL, there is certainly the possibility of the inherited mixed hyperlipidemia in this gentleman. -May be related to his diabetes (given his significantly elevated blood glucose of 275), -A1c 11.1 -TSH and free T4, normal - UA negative for proteinuria. -Continue to monitor labs, vital signs, clinical progression closely 3. Hyperglycemia in patient with type II diabetes, not on insulin. Present on admission -Suspect poor control -A1c markedly elevated 11.1, -medium dose correction insulin -10 units glargine insulin daily at bedtime -Low carb diet. -Continue to follow closely and consider for basal insulin 4. Acute intermittent fevers, not present on admission, evaluation ongoing -Two consecutive nights patient has had temperatures in the febrile range, remains asymptomatic, and resolved with administration of acetaminophen. -Etiology and source unclear at this time. Possibilities include atelectasis, though DVT seems unlikely given the lack of pain and he has been anticoagulated on heparin drip. He has no other signs or symptoms of systemic or localized infection. -Blood cultures drawn, pending -Thyroid studies were normal -We will continue to monitor once again tonight, if no identifiable source is found, will follow-up as an outpatient. 5. Abdominal muscle fasciculations, chronicity unknown, active -[place] most likely be isolated fasciculations, not symptoms of cardiac etiology, possibly due to esophagitis, gastric reflux. -Patient's electrolytes been within normal range including calcium and magnesium -Patient remains on telemetry, no events reported. -We will continue to monitor, follow-up in an outpatient basis. 6. Mild transaminitis, unknown chronicity but presumed to be acute. Present on admission -Potentially related to fatty liver, hypertriglyceridemia, or ACS -Fatty infiltration of liver demonstrated on Abd US. -Management as above -Continue to monitor labs closely 7. Relative lymphocytosis with normal white blood cell count, unclear etiology and chronicity. Present on admission, Resolved. -Management of acute presenting conditions as noted above -Continue to follow closely Disposition: Patient looks likely to stay 1-2 nights, may be discharged tomorrow barring any unforeseen complications, Pain Evaluation: Adequate Pain Control GI Prophylaxis: Not indicated VTE Prophylaxis: Sub-Q Enoxaparin Resuscitation Status: CPR: Attempt Resuscitation Time spent 35 minutes Attending Statement The patient was seen and examined together with Dr. Garzon on 06/11/16 and I agree with the history, exam and plan as outlined in the note above. Jarrett Garzon DO Jun 11, 2016 19:19 Catherine Vitale DO Jun 16, 2016 16:51
[2016-06-11] MEDS ORDERED: Insulin GLARgine 100 Unit/mL Syringe SUBQ SCH (21:00)
--- NOTE | 2016-06-11 23:53 | NUR ---
LEG PAIN Pt c/o leg pain, stated that it felt like he "did way too many squats". Pt said it felt like his legs were bruised and sore and stated that it happened before when he took statin drugs. Atorvastatin held. Pt's vitals stable, groin site CDI and extremely tender. No other issues noted at this time.
[2016-06-12] VITALS: BP 130/83; PULSE 80; RESP 18; O2SAT 96
[2016-06-12] MEDS: Sodium Chloride LOK Flush 10 mL Syringe IVFLUSH SCH ×4 (00:30→09:01)
[2016-06-12 02:52] VITALS: BP 126/85; PULSE 63; RESP 16; O2SAT 97
[2016-06-12] MEDS: Nitroglycerin 50 mg/250 mL D5W 50,000 MCG in IV Premix 1 EACH IV SCH (03:02)
[2016-06-12 03:25] LABS: BASOPHILS % (AUTO) 0.2 % (0-3); EOSINOPHILS % (AUTO) 0.5 % (0-5); MONOCYTES % (AUTO) 7.5 % (4-12); Mean Corpuscular Hemoglobin 30.9 pg (27.0-35.0); NEUTROPHILS % (AUTO) 61.9 % (40-74); Platelet Count 158 bil/L (150-400)
[2016-06-12 04:22] LABS: TROPONIN T 0.065 ug/L (0.0-0.011)
[2016-06-12 05:40] VITALS: BP 126/85; PULSE 63; RESP 18; O2SAT 97
[2016-06-12 07:50] VITALS: BP 125/81; PULSE 68; RESP 16; O2SAT 99
[2016-06-12] MEDS: MeTOProlol XL 25 mg ER24 Tablet PO SCH (08:59)
[2016-06-12] MEDS: Insulin Human REGular 300 Unit/3 mL Inj SUBQ SCH (08:59)
--- NOTE | 2016-06-12 10:10 | PROG NOTE ---
[address] [address] PROGRESS NOTE PATIENT: JILLIAN UREÑA : 1965 MR#: [id number] ADMIT: 06/09/2016 JOB ID: [id number] DATE: 06/12/2016 SUBJECTIVE: The patient underwent stent placement to the mid circumflex artery yesterday. He is feeling well today. He denies chest discomfort, shortness of breath, orthopnea, or PND. OBJECTIVE: Temperature is 36.6. Blood pressure is 125/81. Pulse 68. Body weight is 86.6 kg. Head and face have normal configuration. Anicteric sclerae. Neck: No jugular venous distention. Lungs are clear to auscultation. Heart: The first and second heart sounds are normal. No gallop or murmur. Abdomen: Soft. Extremities: No clubbing, cyanosis, or edema. Small right groin hematoma. Blood tests showed hemoglobin 13.7, WBC 8.1, platelets 158. Sodium 137, potassium 4.4, chloride 101, bicarb 15, BUN 17, creatinine 0.65, glucose 206. IMPRESSION: 1. Non ST-elevated myocardial infarction. 2. Status post stent to the left anterior descending artery and circumflex artery. 3. Uncontrolled diabetes with hemoglobin A1c of 11.4. 4. Dyslipidemia with triglyceride of 2331. 5. History of statin induced myalgia. PLAN: The patient could be discharged from the hospital today. He should see garage door technician for diabetic management. He will be on aspirin indefinitely. He should be on Plavix for at least one year. He will be on beta abiel and BRENT inhibitor. I would use Crestor 5 mg once daily, fenofibrate 145 mg daily and Zetia 10 mg daily as his lipid-lowering agent. Once his diabetes is under control, his triglycerides will improve. [facility]
[2016-06-12 10:26] VITALS: PULSE 66
[2016-06-12] MEDS ORDERED: EZET10TA PO (11:08)
[2016-06-12] MEDS ORDERED: METF500T PO (11:08)
[2016-06-12] MEDS ORDERED: INSU100V7 SUBQ (11:08)
[2016-06-12] MEDS ORDERED: METO25TA99 PO (11:08)
[2016-06-12] MEDS ORDERED: INSU500I SQ (11:08)
[2016-06-12] MEDS ORDERED: ROSU5TAB9 PO (11:08)
[2016-06-12] MEDS ORDERED: CLOP75TA28 PO (11:08)
[2016-06-12] MEDS ORDERED: ASPI81TA3 PO (11:08)
[2016-06-12] MEDS ORDERED: FENO145T19 PO (11:08)
--- NOTE | 2016-06-12 11:31 | PCM.DIMED ---
Jarrett Garzon DO 06/12/16 1131: Discharge Instructions Date of Service Jun 12, 2016 Dates of Hospitalization Jun 09, 2016 at 03:46 Discharge Diagnosis Discharge Diagnosis 1. NSTEMI as indicated by normalization of ECG with elevated troponin. Acute 2. Three-vessel coronary artery disease status post ballooning and stent placement. 3. Severe hypertriglyceridemia with triglycerides greater than 2000, unclear etiology and chronicity but presumed to be acute 4. Hyperglycemia in patient with type II diabetes, not on insulin. 5. Acute intermittent fevers 6. Abdominal muscle fasciculations, chronicity unknown 7. Mild transaminitis 8. Relative lymphocytosis with normal white blood cell count Medication Instructions Begin taking Aspirin 81 mg by mouth daily with food Begin taking Clopidogrel 75 mg every day by mouth Begin taking Crestor 5 mg once daily by mouth, I am only dispensing 5 pills, if you begin to have muscle pain after taking this medication please notify Dr. Rucker and stop taking the medication. Begin taking Fenofibrate 145 mg by mouth daily. Please start by taking half a pill by mouth every day for 3 days then a full pill from then on. This initially may cause some abdominal discomfort, please notify Dr. Rucker if any of that occurs. Begin taking Zetia 10 mg by mouth every day Begin taking Metoprolol succinate 25 mg by mouth daily, if you experience any lightheadedness, dizziness, feeling of "passing out" please hold taking the medication and notify Dr. Soni. Continue taking Metformin 1000 mg twice a day by mouth Insulin glargine 20 units at night before bed. You need to check your blood sugar every morning before eating, if blood sugar is less than 90, please notify Dr. Rucker [place] insulin, one KwikPen Additionally, you need to check your blood sugar 1-2 hours after you START eating a meal, and use the following scale to dose your insulin: For blood glucose 141-199 administer 1 unit For blood glucose 200 249 administer 3 units For blood glucose 250-299 administer 5 units For blood glucose 300-349 administer 7 units For blood glucose >349 administer 8 units Check your blood sugar if you begin to feel "flush," lightheaded, dizzy, extremely tired, cold sweats, or shaky. If blood glucose is less than 90, please have something sweet to eat or drink, and consider going to emergency department if does not resolve or worsens. Notify Dr. Rucker of these events You will need a glucose monitoring system, these can be picked up just about any pharmacy. Most insurance companies can reimburse for the glucose monitoring systems and the necessary supplies that go with them such as blood glucose testing strips. Diet Heart Healthy, Diabetic Activity No restrictions Call your provider Fever or Chills, Shortness of breath, Bleeding, Chest pain, Vomitting, Excessive diarrhea, Weakness (unilateral) Patient Instructions Please see medication instructions. I highly encourage you to consider very low carbohydrate diet to control your diabetes. Please keep your follow-up appointments. If you experience any chest pain, shortness of breath, lightheadedness, dizziness, nausea, vomiting, diarrhea, muscle pains, feeling "flush," cold sweats, or extremely shaky, please consider going to the emergency department or calling 911 if necessary Please attention to the catheter insertion site on your right hip. They develop any bleeding, worsening bruising, pain or lumps, please notify your physician or go to urgent care if necessary. Please see follow-up instructions. Follow-up plan Please keep your appointment with Dr. Rucker on Friday of this week. Please follow-up with Dr. Soni in 1-2 weeks. Follow-up Provider: Altagracia Rucker MD Follow-up with PCP in: Other (06/14/2016) Provider: Janet Soni MD Follow-up in: 1 week (1-2 weeks) Catherine Vitale DO 06/12/16 1322: Discharge Instructions Attending's Statement The patient was seen and examined together with Dr. Ford on 06/12/16 and I agree with the history, exam and plan as outlined in the note above. Jarrett Garzon DO Jun 12, 2016 11:31 Catherine Vitale DO Jun 12, 2016 13:22
--- NOTE | 2016-06-12 12:43 | NUR ---
Discharge Pt discharged home today at 12:45. Pt off floor via ambulation with all of his belongings in the company of the nurse and his . Pt provided prescriptions, follow up instructions and there was a considerable time spent thoroughly going over med schedules and diabetic management. Pt and voice understanding. Human insulin relabeled by pharm for home use.
[2016-06-12] MEDS ORDERED: Insulin Human REGular 300 Unit/3 mL Inj SUBQ SCH (12:45)
--- NOTE | 2016-06-12 21:00 | PCM.DC.MED ---
Discharge Summary Date of Service Jun 12, 2016 Dates of Hospitalization Date of Hospital Admission Jun 09, 2016 at 3:46 am Date of Discharge: Jun 12, 2016 Providers: Admitting Physician: Khalif Matt MD Primary Care Physician: Altagracia Rucker MD Attending Physician: Khalif Matt MD Diagnosis at Time of Discharge Diagnosis at Time of Discharge 1. NSTEMI as indicated by normalization of ECG with elevated troponin. Acute 2. Three-vessel coronary artery disease status post ballooning and stent placement. 3. Severe hypertriglyceridemia with triglycerides greater than 2000, unclear etiology and chronicity but presumed to be acute 4. Hyperglycemia in patient with type II diabetes, not on insulin. 5. Acute intermittent fevers 6. Abdominal muscle fasciculations, chronicity unknown 7. Mild transaminitis 8. Relative lymphocytosis with normal white blood cell count Consultations Cardiology Procedures XRay, CTs & MRIs Chest x-ray on personal read does not demonstrate any acute abnormality. Abdominal ultrasound performed 06/10/2016 IMPRESSION: 1. Increased hepatic echogenicity noted likely related to fatty infiltration of the liver but other sources of hepatocellular disease cannot be excluded. Recommend clinical correlation. Dictated by: Shane Yepez RRA Interpreted: Ashley Snyder MD on 06/10/2016 at 13: 38 ECG 12 Lead Initial EKG when patient presented showed sinus rhythm with a rate of 60 and relatively normal intervals. There was however ST elevation in V2, V3, and borderline before. However, despite nonspecific ST-T changes in 1 and 2 these do not appear to be contributory. On repeat EKG in our to later: Sinus rhythm with rate of 68 and normal intervals , but the ST-T wave changes that were so obvious on the previous EKG had resolved. Cardiac Echo Impression None yet this visit Invasive Procedures Cardiac catheterization 2 Other Diagnostics Interventional cardiac catheterization: Retrograde left heart catheterization performed 06/10/2016 CONCLUSION: 1. Severe two-vessel coronary artery disease of the left anterior descending and circumflex artery. 2. Successful balloon angioplasty and stenting to the critical 98% stenosis of the mid left anterior descending artery by deploying two drug-eluting stents. 3. LVEF 40%. 4. LVEDP is 17 mmHg. Tee Smith MD 06/10/16 3589 Brief History From Admission note: "Huey is a pleasant 50-year-old gentleman with history of diabetes mellitus type II on oral medications and hyperlipidemia not currently on medication ( history of intolerance of statin) who presents with an approximately 36 hour complaint of waxing and waning chest pain/heaviness (anywhere from 1-5/10). This is associated with nausea and episodes of feeling hot and sweaty. He also notes that he has had at least 2 very brief episodes of shock sensation in the left arm. He also reports a headache during this time. Patient otherwise denies any other concerning symptoms. He does report that he had a URI back in March and April of this year. He reports receiving from his primary care provider courses of prednisone, inhalers, and cough suppressant. He currently reports that he has an ongoing dry cough but denies production. Denies fever/chills. Initially the EKG in the ER demonstrated what looked like ST elevation, but upon review with both diagnostic and interventional cardiology (with the ER physician) in the setting of repeat EKG, this was determined to not be the case. However, his second troponin was increased at 0.061, and decision was made at that time to initiate management of NSTEMI. It was noted during blood draw to check his PTT that his blood was quite "fatty." For this reason he was switched from heparin drip to therapeutic Lovenox. His chest heaviness was somewhat persistent on nitro drip, but improved. Hospital Course Huey is a pleasant 50-year-old gentleman with history of diabetes mellitus type II on oral medications and hyperlipidemia not currently on medication ( history of intolerance of statin) who presents with an approximately 36 hour complaint of waxing and waning chest pain/heaviness (anywhere from 1-5/10) with associated nausea, sweating, headache. He was admitted with diagnosis of non- STEMI. He was started on appropriate medications, cardiology consulted and cardiac catheterization was performed. Catheterization showed him to have two- vessel disease, he underwent stenting of his LAD with 2 drug-eluting stents deployed, and day before discharge underwent catheterization again and had balloon and stenting performed to his circumflex artery. During his stay 2 consecutive nights he developed a fever, no source was identified, blood cultures remain negative, fevers resolved with administration of acetaminophen, patient remained asymptomatic. He was also found to have uncontrolled diabetes with a hemoglobin A1c of 11.1. Hypertriglyceridemia over 1999. On day of discharge patient had mild pain to his right groin catheterization insertion site, but resolved with Tylenol. 1. NSTEMI as indicated by normalization of ECG with elevated troponin. Acute. Present on admission - Underwent cardiac catheterization 06/10/2016: Two-vessel coronary artery disease left anterior descending and circumflex artery. Underwent successful balloon angioplasty and stenting of the critical 98% stenosis of the mid LAD and appointment of 2 drug-eluting stents. Cardiac catheterization 06/11/2016 balloon angioplasty of circumflex, deployment of 1 drug eluting stent. - Anticoagulation change from enoxaparin to clopidogrel, continue clopidogrel as an outpatient for 1 year - Received heparin and nitroglycerin drips which were respectively stopped. -Troponin trending down throughout admission. -Cardiology consulted: We thank them for their time, and recommendations. -Aspirin 81 mg daily, Nitroglycerin as needed sublingual, Clopidogrel 75 mg daily, Metoprolol XL 25 daily. Additional recommendations included Crestor 5 mg daily, Zetia daily, fenofibrate 145 mg daily however after discharge it was found that insurance would not cover some of these medications. I spoke personally with the pharmacist and patient's primary care physician regarding this, Dr. Rucker agreed to assume care of statin medication. 2. Severe hypertriglyceridemia with triglycerides greater than 2000, unclear etiology and chronicity but presumed to be acute. Present on admission -This puts him at significant risk for pancreatitis and cardiac complications - lipase negative -Given his degree of triglyceridemia, discharged with prescriptions for fenofibrate, Zetia, niacin was discontinued due to its ability to increase blood sugar. -May be related to his diabetes (given his significantly elevated blood glucose of 275), -A1c 11.1 -TSH and free T4, normal - UA negative for proteinuria. - Follow-up as an outpatient 3. Hyperglycemia in patient with type II diabetes, not on insulin. Present on admission - Due to poor diet -A1c markedly elevated 11.1, - Discharged on 20 units at bedtime glargine insulin, medium dose correctional insulin with meals. - Recommend a very low carb diet 4. Acute intermittent fevers, not present on admission, evaluation ongoing -Two consecutive nights patient has had temperatures in the febrile range, remains asymptomatic, and resolved with administration of acetaminophen. -Etiology and source unclear at this time. Possibilities include atelectasis, though DVT seems unlikely given the lack of pain and he has been anticoagulated on heparin drip. He has no other signs or symptoms of systemic or localized infection. -Blood cultures drawn, pending -Thyroid studies were normal -No source identified at discharge 5. Abdominal muscle fasciculations, chronicity unknown, active -[place] most likely be isolated fasciculations, not symptoms of cardiac etiology, possibly due to esophagitis, gastric reflux. -Patient's electrolytes been within normal range including calcium and magnesium -Patient remained on telemetry, no events reported. -Recommended magnesium oxide or magnesium taurate supplementation as an outpatient. 6. Mild transaminitis, unknown chronicity but presumed to be acute. Present on admission -Potentially related to fatty liver, hypertriglyceridemia, or ACS -Fatty infiltration of liver demonstrated on Abd US. -Management as above 7. Relative lymphocytosis with normal white blood cell count, unclear etiology and chronicity. Present on admission, Resolved. -Management of acute presenting conditions as noted above On day of discharge patient was feeling good, ready to go home. He understood the diagnoses he was given, the necessary treatments, questions were answered, he stated understanding and agreement. Instructions were given to him and his was taking notes. I spoke personally with the patient's primary care physician on day of discharge regarding his needs as an outpatient. Spoke daily with cardiology regarding patient's care and case. Exam Vital Signs (Last) Date Time Temp Pulse Resp B/P Pulse Ox O2 Delivery O2 Flow Rate FiO2 06/12/16 10:26 66 06/12/16 07:59 Supplement Oxygen 06/12/16 07:50 36.6 16 125/81 99 06/10/16 07:39 0.50 Exam General: Laying in bed, no apparent distress. HEENT: Normocephalic, atraumatic, EOMI grossly, Cardiovascular: Regular rate and rhythm, 2/6 harsh systolic murmur to L precordium, peripheral pulses 2/4 equal bilaterally Pulmonary: Clear to auscultation bilaterally, no W/R/R. Abdominal: Soft to palpation, bowel sounds present 4, no hepatosplenomegaly. Negative rebound. No fasciculations appreciated no tenderness in epigastrium Extremities: No edema appreciated. No tenderness, asymmetry. Neuro: Neurologically grossly intact, strength is equal bilaterally upper and lower extremities. MSK: Able to move extremities on his own volition, strength 5 out of 5 equal bilaterally to upper and lower extremities. Test 06/08/16 23:59 06/09/16 02:20 06/09/16 04:29 06/09/16 08:14 D-Dimer < 0.5mg/L (<0.50) Triglycerides Level 2331mg/dL (0-149) Cholesterol Level 274mg/dL (100-199) LDL Cholesterol, Calculated mg/dL (0-99) VLDL Cholesterol 466.200mg/dL HDL Cholesterol 20mg/dL (>39) Cholesterol/HDL Ratio 13.70 (0.0-4.4) Lipase 41U/L (13-60) Urinalysis Comment None Hold Urine Received (Received) Creatine Kinase MB 7.6ng/mL (0.0-10.4) Creatine Kinase MB % 4.3% (0.0-5.0) Test 06/10/16 02:44 06/10/16 23:34 06/10/16 23:55 06/11/16 02:20 Phosphorus Level 2.9mg/dL (2.5-4.9) Thyroid Stimulating Hormone (TSH) 0.570uIU/mL (0.450-4.500) Free Thyroxine 1.38ng/dL (0.82-1.77) Urine Color Yellow (YELLOW) Urine Appearance Clear (CLEAR,HAZY) Urine pH 6.0 (5.0-8.0) Urine Specific [place] 1.010 (1.003-1.035) Urine Protein Negativemg/dL (NEG,TRACE) Urine Glucose (UA) >1000mg/dL (NEGATIVE) Urine Ketones 40mg/dL (NEGATIVE) Urine Occult Blood Negative (NEGATIVE) Urine Nitrite Negative (NEGATIVE) Urine Bilirubin Negative (NEGATIVE) Urine Urobilinogen Normalmg/dL (NORMAL) Urine Leukocyte Esterase Negative (NEGATIVE) Urine RBC 0-2/hpf (0-2) Urine WBC 0-5/hpf (0-5) Urine Epithelial Cells Occasional/hpf (NONE-MOD) Urine Crystals None seen (NONE SEEN) Urine Bacteria Few/hpf (NONE-FEW) Urine Hyaline Casts None/lpf (NONE) Urine Granular Casts None seen (NONE SEEN) Urine Waxy Casts None seen (NONE SEEN) Urine Red Blood Cell Casts None seen (NONE SEEN) Urine White Blood Cell Casts None seen (NONE SEEN) Urine Mucus None seen (None Seen) Urine Trichomonas None seen (NONE SEEN) Urine Yeast None (NONE SEEN) Urine Culture Reflexed Not indicated Hold [place] Top Tube Received (Received) Hold [place] Top Tube Received (Received) Hemoglobin A1c 11.4% (4.8-5.6) Total Bilirubin 0.8mg/dL (0.0-1.2) Aspartate Amino Transf (AST/SGOT) 24U/L (0-50) Alanine Aminotransferase (ALT/SGPT) 38U/L (0-44) Alkaline Phosphatase 46U/L (25-150) Total Protein 7.4g/dL (6.4-8.4) Albumin 3.8g/dL (3.4-5.0) Test 06/12/16 02:40 06/12/16 08:35 White Blood Count 8.1th/mm3 (3.8-10.1) Red Blood Count 4.44mil/mm3 (4.40-5.80) Hemoglobin 13.7g/dL (13.8-17.2) Hematocrit 40.4% (41.0-50.0) Mean Corpuscular Volume 91.0fL (81-100) Mean Corpuscular Hemoglobin 30.9pg (27.0-35.0) Mean Corpuscular Hemoglobin Concent 33.9% (32.0-37.0) Red Cell Distribution Width 13.9% (12.3-15.4) Platelet Count 158bil/L (150-400) Neutrophils (%) (Auto) 61.9% (40-74) Lymphocytes (%) (Auto) 29.7% (14-46) Monocytes (%) (Auto) 7.5% (4-12) Eosinophils (%) (Auto) 0.5% (0-5) Basophils (%) (Auto) 0.2% (0-3) Sodium Level 137mEq/L (134-144) Potassium Level 4.4mEq/L (3.5-5.2) Chloride Level 101mEq/L (97-108) Carbon Dioxide Level 15mmol/L (18-29) Blood Urea Nitrogen 17mg/dL (6-24) Creatinine 0.65mg/dL (0.76-1.27) Estimat Glomerular Filtration Rate 137mL/min (>59) Glucose Level 206mg/dL (60-99) Calcium Level 9.2mg/dL (8.5-10.1) Magnesium Level 2.0mg/dL (1.6-2.6) Total Creatine Kinase 61U/L (21-232) Troponin T 0.065ug/L (0.0-0.011) Lactic Acid Level 1.3mmol/L (0.4-2.0) Microbiology Results None this visit Discharge Medications Discharge Medications Aspirin Chew (Aspirin Chew) 81 Mg Chew 81 MG PO DAILY Prescribed by: MAYRA CHILDS DO Clopidogrel (Clopidogrel) 75 Mg Tablet 75 MG PO DAILY Prescribed by: MAYRA CHILDS DO Ezetimibe (Zetia) 10 Mg Tablet 10 MG PO DAILY Prescribed by: MAYRA CHILDS DO Fenofibrate Nanocrystallized (Fenofibrate) 145 Mg Tablet 145 MG PO DAILY Prescribed by: MAYRA CHILDS DO Insulin Glargine (Lantus U100 Insulin Vial) 100 Unit/Ml Vial 20 UNIT SUBQ HS Prescribed by: MAYRA CHILDS DO Insulin Regular, Human (Humulin R U-500 Kwikpen) 500/Ml (3) Insuln.pen 500 UNIT SQ PC Prescribed by: MAYRA CHILDS DO Metformin (Glucophage) 500 Mg Tablet 1,000 MG PO BIDWM Prescribed by: MAYRA CHILDS DO Metoprolol Succinate ER (Metoprolol Succinate ER) 25 Mg Tab.er.24h 25 MG PO DAILY Prescribed by: MAYRA CHILDS DO Rosuvastatin Calcium (Rosuvastatin Calcium) 5 Mg Tablet 5 MG PO DAILY Prescribed by: MAYRA CHILDS DO Miscellaneous Medications Cholecalciferol (Vitamin D3) (Vitamin D) 400 Unit/1 Ml Drops 400 UNIT PO ( Reported) Vit A & D3 in Cod Liver Oil (Cod Liver Oil Softgel) 1 Each Capsule 1 EACH PO ( Reported) Additional med instructions Begin taking Aspirin 81 mg by mouth daily with food Begin taking Clopidogrel 75 mg every day by mouth Begin taking Crestor 5 mg once daily by mouth, I am only dispensing 5 pills, if you begin to have muscle pain after taking this medication please notify Dr. Rucker and stop taking the medication. Begin taking Fenofibrate 145 mg by mouth daily. Please start by taking half a pill by mouth every day for 3 days then a full pill from then on. This initially may cause some abdominal discomfort, please notify Dr. Rucker if any of that occurs. Begin taking Zetia 10 mg by mouth every day Begin taking Metoprolol succinate 25 mg by mouth daily, if you experience any lightheadedness, dizziness, feeling of "passing out" please hold taking the medication and notify Dr. Soni. Continue taking Metformin 1000 mg twice a day by mouth Insulin glargine 20 units at night before bed. You need to check your blood sugar every morning before eating, if blood sugar is less than 90, please notify Dr. Chaim Son insulin, one KwikPen Additionally, you need to check your blood sugar 1-2 hours after you START eating a meal, and use the following scale to dose your insulin: For blood glucose 141-199 administer 1 unit For blood glucose 200 249 administer 3 units For blood glucose 250-299 administer 5 units For blood glucose 300-349 administer 7 units For blood glucose >349 administer 8 units Check your blood sugar if you begin to feel "flush," lightheaded, dizzy, extremely tired, cold sweats, or shaky. If blood glucose is less than 90, please have something sweet to eat or drink, and consider going to emergency department if does not resolve or worsens. Notify Dr. Rucker of these events You will need a glucose monitoring system, these can be picked up just about any pharmacy. Most insurance companies can reimburse for the glucose monitoring systems and the necessary supplies that go with them such as blood glucose testing strips. Followup Plan Disposition: Patient was able to ambulate from the hospital on his own volition. Discharged home with close follow-up. Follow-up plan Please keep your appointment with Dr. Rucker on Friday of this week. Please follow-up with Dr. Soni in 1-2 weeks. Discharge Diet: Heart Healthy, Diabetic Discharge Activity: No restrictions Patient Instructions Please see medication instructions. I highly encourage you to consider very low carbohydrate diet to control your diabetes. Please keep your follow-up appointments. If you experience any chest pain, shortness of breath, lightheadedness, dizziness, nausea, vomiting, diarrhea, muscle pains, feeling "flush," cold sweats, or extremely shaky, please consider going to the emergency department or calling 911 if necessary Please attention to the catheter insertion site on your right hip. They develop any bleeding, worsening bruising, pain or lumps, please notify your physician or go to urgent care if necessary. Please see follow-up instructions. Follow-up Provider: Altagracia Rucker MD Follow-up with PCP in: Other (06/14/2016) Provider: Janet Soni MD Follow-up in: 1 week (1-2 weeks) Time spent Greater than 35 minutes Attending Statement The patient was seen and examined together with Dr. Garzon on 06/12/16 and I have added additional information to the note above. copies to: Altagracia Rucker MD, Noah M DO Jun 12, 2016 21:00 Catherine Vitale DO Jun 15, 2016 14:20
== END 2016-06-12 12:30 | disposition home or self-care (01) | DRG 247 ==
LOC: SED 23:48 → PCC 06-09 03:46
PROVIDERS: ADMIT Hospitalist; ATTEND Hospitalist
PROC: 027035Z Dilation of Coronary Artery, One Artery with Two Drug-eluting Intraluminal Devices, Percutaneous Approach (ICD-10-PCS; principal; 2016-06-10)
PROC: 4A023N7 Measurement of Cardiac Sampling and Pressure, Left Heart, Percutaneous Approach (ICD-10-PCS; 2016-06-10)
PROC: B2111ZZ Fluoroscopy of Multiple Coronary Arteries using Low Osmolar Contrast (ICD-10-PCS; 2016-06-10)
PROC: B2151ZZ Fluoroscopy of Left Heart using Low Osmolar Contrast (ICD-10-PCS; 2016-06-10)
PROC: 027034Z Dilation of Coronary Artery, One Artery with Drug-eluting Intraluminal Device, Percutaneous Approach (ICD-10-PCS; 2016-06-11)
DX: I21.4 Non-ST elevation (NSTEMI) myocardial infarction (principal); I97.630 Postprocedural hematoma of a circulatory system organ or structure following a cardiac catheterization; E11.65 Type 2 diabetes mellitus with hyperglycemia; Z79.84 Long term (current) use of oral hypoglycemic drugs; E78.1 Pure hyperglyceridemia; Z79.82 Long term (current) use of aspirin; I25.10 Atherosclerotic heart disease of native coronary artery without angina pectoris; R74.0 Nonspecific elevation of levels of transaminase and lactic acid dehydrogenase [LDH]; D72.820 Lymphocytosis (symptomatic); R50.9 Fever, unspecified; R25.3 Fasciculation; Y84.0 Cardiac catheterization as the cause of abnormal reaction of the patient, or of later complication, without mention of misadventure at the time of the procedure